=== PATIENT | female | born 1940 | race Caucasian/White ===

== ENCOUNTER → 2017-05-28 | Outpatient (CLI) | payer BC ==
[~2017-05-28] MED LIST: ANT25 PO; ASPI81TA28 PO; DIVA250T4 PO; DPKEC250 PO; HYDR-4079 PO; LACTPOW; MIRT15TA PO; MULT-506 PO; NAPR-1169 PO; ONDA4TAB10 SL; PROM1SYP PO; PROP1SOL IO; RMR15 PO; SERT-234 PO; SODI2SOL OP; SODI5OIN4 IO; VERA120T15 PO; VERA180T PO; [UNRECOGNIZED DRUG - CODE]
--- NOTE | 2017-05-28 07:34 | DIAGNOSTIC IMAGING REPORT ---
KUB CLINICAL HISTORY: N20.0 [id number] COMPARISON STUDY: 02/01/2015 FINDINGS: There is no pathologic bowel dilatation. There is mild fecal retention. The renal shadows are partially obscured overlying bowel gas and fecal material. Several calcifications project over the left renal shadow. It is difficult to determine whether these relate to costochondral junction calcifications, vascular calcifications or calculi. IMPRESSION: Nonspecific left upper quadrant calcifications. CT scanning would be necessary to differentiate renal from costochondral junction or vascular calcifications. Electronically signed by: Kyle Pederson M.D. 05/28/2017 7:33 AM Dictated Date/Time: 05/28/2017 7:31 AM
== END | disposition home or self-care (01) ==
LOC: C.RAD 07:15
PROVIDERS: ATTEND Urology
DX: N20.0 Calculus of kidney (principal)

== ENCOUNTER 2017-08-02 11:06 | Emergency (ER) | payer BC ==
[~2017-08-02] VITALS: Ht 165.1 cm; Wt 69.3 kg
[~2017-08-02 11:06] MED LIST changes: -ANT25 PO; -DIVA250T4 PO; -MIRT15TA PO; -ONDA4TAB10 SL; -SODI2SOL OP; -VERA180T PO
[2017-08-02 11:20] VITALS: TEMP 36.5; Ht 165.1 cm; Wt 69.3 kg
[2017-08-02 12:00] LABS: BASO % 0.2 %; BASO ABS # 0.01 K/uL (0-0.2); COMPLETE YES; EOS % 2.4 %; IG% 0.5 %; LYMPH % 11.8 %; LYMPH ABS # 0.65 K/uL (1.2-3.4); MEAN CELL VOLUME 85.7 fL (80-100); MEAN CORPUSCULAR HEMOGLOBIN 28.6 pg (25-34); MEAN CORPUSCULAR HGB CONC 33.3 g/dl (32-36); MEAN PLATELET VOLUME 10.4 fL (7.4-10.4); MONO % 6.5 %; NEUT % 78.6 %; PLATELET COUNT 219 K/uL (130-400); RED BLOOD COUNT 4.55 M/uL (4.2-5.4); WHITE BLOOD COUNT 5.51 K/uL (4.8-10.8)
[2017-08-02 12:04] LABS: URINE APPEARANCE CLEAR (CLEAR); URINE BILIRUBIN NEG (NEG); URINE COLOR YELLOW; URINE NITRITE NEG (NEG); URINE PH 8.5 (4.5-7.5); URINE SPECIFIC GRAVITY 1.013 (1.000-1.030); UROBILINOGEN NEG (NEG); ZZUR CULT IF INDIC CLEAN CATCH NO
[2017-08-02 12:08] LABS: MANUAL MICROSCOPIC REQUIRED? NO; REVIEW REQ? NO
[2017-08-02 12:21] LABS: BUN/CREATININE RATIO 21.6 (10-20); CALCIUM 8.5 mg/dl (8.5-10.1); CREATININE 0.67 mg/dl (0.60-1.20); POTASSIUM 4.1 mmol/L (3.5-5.1)
[2017-08-02 12:23] LABS: ALB/GLOB RATIO 1.5 (0.9-2)
[2017-08-02] MEDS ORDERED: ONDANSETRON INJ 2 MG/ML 2 ML VIAL IV STA (12:23)
[2017-08-02] MEDS ORDERED: VERA180T PO (12:23)
[2017-08-02] MEDS ORDERED: SODIUM CHLORIDE 0.9% 1000ML 1,000 ML IV STA (12:23)
[2017-08-02] MEDS ORDERED: DIVA250T4 PO (12:23)
[2017-08-02] MEDS ORDERED: MIRT15TA PO (12:23)
[2017-08-02] MEDS ORDERED: KETOROLAC TROMETHAMINE 30 MG/ML VIAL IV STA (12:23)
[2017-08-02] MEDS ORDERED: SODI2SOL OP (12:24)
[2017-08-02] MEDS ORDERED: MECLIZINE HCL 12.5 MG TAB PO STA (12:30)
[2017-08-02] MEDS ORDERED: MECLIZINE HCL 25 MG TAB PO ONE (12:33)
--- NOTE | 2017-08-02 12:34 | EMERGENCY ROOM VISIT NOTE ---
History Report prepared by Elier: Anne Chaney Under the Supervision of: Dr. Deacon Mohr M.D. First contact with patient: 12:16 Chief Complaint: NAUSEA Stated Complaint: ILLNESS Nursing Triage Summary: Pt reports sudden onset of nausea, vomiting, and weakness around 0800 this morning. Discomfort in stomach. Pt had tooth pulled on Sunday and was started on Penicillin which she reports she has not taken previously. History of Present Illness The patient is a 76 year old female who presents to the Emergency Room with complaints of intermittent weakness over the past several days. She currently rates her discomfort as a 1/10 in severity. The patient states that on Sunday she had a tooth pulled. She states that she was so dizzy she needed assistance ambulating. The patient states that over the past two days she has been feeling nauseous intermittently. She states that she has been following a soft diet. The patient states that she had dry heaves multiple times today. She states that today as she was preparing to go to an art class, she developed a total body weakness. The patient states that the feeling went away and she had orange juice and oatmeal for breakfast. She states that she developed the weakness again. The patient states that she decided to go to the walk-in clinic for further evaluation and was instructed to come to the emergency department for further treatment. She states that she has been taking Penicillin for her tooth extraction. The patient reports a history of migraines. The patient reports dizziness, but denies any fall or injury. Source of History: patient Onset: past several days Position: other (global) Symptom Intensity: 1/10 Quality: other (weakness) Timing: intermittent Associated Symptoms: + nausea Note: Associated Symptoms: dizziness, dry heaves Review of Systems See HPI for pertinent positives & negatives. A total of 10 systems reviewed and were otherwise negative. Past Medical & Surgical Medical Problems: (1) Bladder cancer (2) Kidney stone (3) Kidney stone (4) Migraine Family History Cancer Social History Smoking Status: Never Smoker Drug Use: none Marital Status: Housing Status: lives with family Occupation Status: retired Current/Historical Medications Scheduled Aspirin (Aspirin Ec), 81 MG PO DAILY Divalproex Sodium (Depakote Delay Rel), 250 MG PO BID Mirtazapine (Remeron), 15 MG PO HS Multivitamin (Multivitamin), 1 TAB PO DAILY Naproxen (Naprosyn), 500 MG PO BID Ondasetron Odt (Zofran Odt), 4 MG SL Q6H Sertraline (Zoloft), 100 MG PO BID Sodium Chloride Hypertonic (Kana 128), 1 DROP OP DAILY Verapamil Hcl (Calan Sr Ext Rel), 180 MG PO HS Scheduled PRN Hydrocodone/Acetaminophen 10MG/325MG ([place] 10MG/325MG), 1 TAB PO BID PRN for Pain Meclizine HCl (Meclizine HCl), 12.5 MG PO Q8 PRN for Dizziness or Vertigo Propylene Glycol (Ophth) (Systane Balance Restorati), 1 APPLN IO DAILY PRN Allergies Coded Allergies: Acetaminophen (Verified Allergy, Unknown, NAUSEA AND ITCHING, 08/02/17) Oxycodone (Verified Allergy, Unknown, NAUSEA AND ITCHING, 08/02/17) Sumatriptan (Verified Adverse Reaction, Severe, SOB,CHEST PAIN, 08/02/17) Monosodium Glutamate (Verified Adverse Reaction, Intermediate, MIGRAINE, 08/02/17) Physical Exam Vital Signs Date Time Temp Pulse Resp B/P (MAP) Pulse Ox O2 Delivery O2 Flow Rate FiO2 08/02/17 14:29 81 18 178/88 97 Room Air 08/02/17 13:26 85 18 177/80 97 Room Air 08/02/17 12:05 73 08/02/17 11:20 36.5 64 18 175/76 96 Room Air Physical Exam GENERAL: Patient is in no acute distress. HEENT: No acute trauma, normocephalic atraumatic, mucous membranes dry, no nasal congestion, no scleral icterus. Left upper 2nd bicuspid has been removed, no signs of swelling or infection. NECK: No stridor, no adenopathy, no meningismus, trachea is midline. LUNGS: Clear to auscultation bilaterally, no wheeze, no rhonchi, breath sounds equal. HEART: Without murmurs gallops or rubs, regular rate and rhythm. ABDOMEN: Soft, nontender, bowel sounds positive, no hernias, no peritonitis. EXTREMITIES: No cyanosis or edema, full range of motion of all the joints without pain or difficulty, no signs for acute trauma. NEUROLOGIC: Oriented x 3, no acute motor or sensory deficits, no focal weakness. No cerebellar deficits or pronator drift. SKIN: No rash, no jaundice, no diaphoresis. Medical Decision & Procedures ER Provider Diagnostic Interpretation: CT results as stated below per my review and radiologist interpretation: HEAD WITHOUT CONTRAST (CT) CLINICAL HISTORY: 76 years-old Female presenting with dizzy, headache. TECHNIQUE: Multidetector CT imaging of the head was performed without the use of intravenous contrast. IV contrast: None. A dose lowering technique was used consistent with the principles of ALARA (as low as reasonably achievable). COMPARISON: Brain MR from 2011. CT DOSE (mGy.cm): The estimated cumulative dose is 638.56 mGycm. 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 Ventricles and sulci normal in size. Brain parenchyma normal in appearance with preserved wilson-white differentiation. No mass effect or midline shift. No hemorrhage or acute territorial infarct. No extra-axial fluid collection. Paranasal sinuses and mastoid air cells clear. Calvarium intact. IMPRESSION: 1. No acute intracranial pathology. Electronically signed by: Willis Garcia M.D. 08/02/2017 1:01 PM Dictated Date/Time: 08/02/2017 12:59 PM Laboratory Results 08/02/17 11:44 Red Blood Count 4.55, Mean Corpuscular Volume 85.7, Mean Corpuscular Hemoglobin 28.6, Mean Corpuscular Hemoglobin Concent 33.3, Mean Platelet Volume 10.4, Neutrophils (%) (Auto) 78.6, Lymphocytes (%) (Auto) 11.8, Monocytes (%) (Auto) 6.5, Eosinophils (%) (Auto) 2.4, Basophils (%) (Auto) 0.2, Neutrophils # (Auto) 4.33, Lymphocytes # (Auto) 0.65, Monocytes # (Auto) 0.36, Eosinophils # (Auto) 0.13, Basophils # (Auto) 0.01 08/02/17 11:44 Test 08/02/17 11:20 08/02/17 11:44 Urine Color YELLOW Urine Appearance CLEAR (CLEAR) Urine pH 8.5 (4.5-7.5) Urine Specific [place] 1.013 (1.000-1.030) Urine Protein NEG (NEG) Urine Glucose (UA) NEG (NEG) Urine Ketones NEG (NEG) Urine Occult Blood NEG (NEG) Urine Nitrite NEG (NEG) Urine Bilirubin NEG (NEG) Urine Urobilinogen NEG (NEG) Urine Leukocyte Esterase NEG (NEG) White Blood Count 5.51 K/uL (4.8-10.8) Red Blood Count 4.55 M/uL (4.2-5.4) Hemoglobin 13.0 g/dL (12.0-16.0) Hematocrit 39.0 % (37-47) Mean Corpuscular Volume 85.7 fL (80-100) Mean Corpuscular Hemoglobin 28.6 pg (25-34) Mean Corpuscular Hemoglobin Concent 33.3 g/dl (32-36) Platelet Count 219 K/uL (130-400) Mean Platelet Volume 10.4 fL (7.4-10.4) Neutrophils (%) (Auto) 78.6 % Lymphocytes (%) (Auto) 11.8 % Monocytes (%) (Auto) 6.5 % Eosinophils (%) (Auto) 2.4 % Basophils (%) (Auto) 0.2 % Neutrophils # (Auto) 4.33 K/uL (1.4-6.5) Lymphocytes # (Auto) 0.65 K/uL (1.2-3.4) Monocytes # (Auto) 0.36 K/uL (0.11-0.59) Eosinophils # (Auto) 0.13 K/uL (0-0.5) Basophils # (Auto) 0.01 K/uL (0-0.2) RDW Standard Deviation 42.6 fL (36.4-46.3) RDW Coefficient of Variation 13.7 % (11.5-14.5) Immature Granulocyte % (Auto) 0.5 % Immature Granulocyte # (Auto) 0.03 K/uL (0.00-0.02) Anion Gap 7.0 mmol/L (3-11) Est Creatinine Clear Calc Drug Dose 68.7 ml/min Estimated GFR () 98.3 Estimated GFR (Non- 84.8 BUN/Creatinine Ratio 21.6 (10-20) Calcium Level 8.5 mg/dl (8.5-10.1) Total Bilirubin 0.3 mg/dl (0.2-1) Aspartate Amino Transf (AST/SGOT) 16 U/L (15-37) Alanine Aminotransferase (ALT/SGPT) 23 U/L (12-78) Alkaline Phosphatase 56 U/L (45-117) Total Protein 6.7 gm/dl (6.4-8.2) Albumin 4.0 gm/dl (3.4-5.0) Globulin 2.7 gm/dl (2.5-4.0) Albumin/Globulin Ratio 1.5 (0.9-2) Lipase 236 U/L (73-393) Valproic Acid (Depakene) Level 62 mcg/ml (50-100) Laboratory results reviewed by me. Medications Administered Medications (Trade) Dose Ordered Sig/Aldair Route Start Time Stop Time Status Last Admin Dose Admin Ondansetron HCl (Zofran Inj) 4 mg NOW STAT IV 08/02/17 12:23 08/02/17 12:27 DC 08/02/17 12:37 4 MG Sodium Chloride 1,000 ml @ 999 mls/hr Q1H1M STAT IV 08/02/17 12:23 08/02/17 13:23 DC 08/02/17 12:37 999 MLS/HR Ketorolac Tromethamine (Toradol Inj) 30 mg NOW STAT IV 08/02/17 12:23 08/02/17 12:27 DC 08/02/17 12:37 30 MG Meclizine HCl (Antivert Tab) 12.5 mg NOW STAT PO 08/02/17 12:30 08/02/17 12:31 DC 08/02/17 12:38 12.5 MG ED Course 1217: The patient was evaluated in room C8. A complete history and physical exam was performed. 1223: Ordered Toradol Inj 30 mg IV, Sodium Chloride 1000 ml @ 999 mls/hr IV, Zofran Inj 4 mg IV. 1230: Ordered Antivert 12.5 mg PO. 1410: I reevaluated the patient and she is feeling better. I discussed the exam findings with her and I discussed the treatment plan. She verbalized complete understanding and agreement. She is ready to go home. Medical Decision The patient is a 76 year old female who presents to the ED with complaints of intermittent dizziness. Differential diagnoses considered include vertigo, dehydration, migraine, stroke, electrolyte imbalance, anemia, UTI, medication reaction. There is no leukocytosis or concerning anemia. No significant electrolyte abnormality, kidney failure or hepatitis. Valproic acid level is not toxic. Brain CT shows no acute bleed or mass effect. Urinalysis does not show infection. No evidence for pancreatitis. On exam, there were no focal neurologic deficits. The patient's symptoms would come and go and seemed worse with certain position change. The patient very likely has vertigo. Certainly, she may not be doing well with her penicillin-this could be worsening her situation. The patient received IV saline, IV Toradol, IV Zofran and oral meclizine. She feels better and is resting. The patient would like to be discharged, I think this is reasonable. I will try Zofran and meclizine for her symptoms. She will hold her penicillin. If things are worsening, she will return. She was encouraged to follow with her dentist and with her family doctor's office. Medication Reconcilliation Current Medication List: was personally reviewed by me Blood Pressure Screening Patient's blood pressure: Elevated blood pressure Blood pressure disposition: Referred to PCP Impression Primary Impression: Vomiting Additional Impression: Vertigo Scribe Attestation The scribe's documentation has been prepared under my direction and personally reviewed by me in its entirety. I confirm that the note above accurately reflects all work, treatment, procedures, and medical decision making performed by me. Departure Information Dispostion Home / Self-Care Prescriptions Ondasetron Odt (ZOFRAN ODT) 4 Mg Tab 4 MG SL Q6H for Nausea, #10 TAB Prov: Deacon Mohr M.D. 08/02/17 Meclizine HCl (Meclizine HCl) 25 Mg Tab 12.5 MG PO Q8 Y for Dizziness or Vertigo, #10 TAB Prov: Deacon Morh M.D. 08/02/17 Referrals RV. Rizvi MD (PCP) Forms HOME CARE DOCUMENTATION FORM, IMPORTANT VISIT INFORMATION Patient Instructions [facility] Additional Instructions rest fluids zofran 1 tab every 6 hours for nausea meclizine 1/2 tab as needed every 8 hours hold penicillin for now return if worsening as we discussed lab testing and imaging was all ok today Problem Qualifiers
--- NOTE | 2017-08-02 13:03 | DIAGNOSTIC IMAGING REPORT ---
HEAD WITHOUT CONTRAST (CT) CLINICAL HISTORY: 76 years-old Female presenting with dizzy, headache. TECHNIQUE: Multidetector CT imaging of the head was performed without the use of intravenous contrast. IV contrast: None. A dose lowering technique was used consistent with the principles of ALARA (as low as reasonably achievable). COMPARISON: Brain MR from 2011. CT DOSE (mGy.cm): The estimated cumulative dose is 638.56 mGycm. 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 Ventricles and sulci normal in size. Brain parenchyma normal in appearance with preserved wilson-white differentiation. No mass effect or midline shift. No hemorrhage or acute territorial infarct. No extra-axial fluid collection. Paranasal sinuses and mastoid air cells clear. Calvarium intact. IMPRESSION: 1. No acute intracranial pathology. Electronically signed by: Willis Garcia M.D. 08/02/2017 1:01 PM Dictated Date/Time: 08/02/2017 12:59 PM
[2017-08-02] MEDS ORDERED: ANT25 PO (14:19)
[2017-08-02] MEDS ORDERED: ONDA4TAB10 SL (14:19)
[2017-08-02 14:29] VITALS: BP 178/88; PULSE 81; O2SAT 97
== END 2017-08-02 14:33 | disposition home or self-care (01) ==
LOC: EDBD 11:06 → C.EDC 11:08
DX: R11.10 Vomiting, unspecified (principal); R42 Dizziness and giddiness; Z79.82 Long term (current) use of aspirin

== ENCOUNTER → 2017-08-20 | Outpatient (CLI) | payer BC ==
[~2017-08-20] MED LIST changes: +ANT25 PO; +DIVA250T4 PO; -DPKEC250 PO; -LACTPOW; +MIRT15TA PO; +ONDA4TAB10 SL; -PROM1SYP PO; -RMR15 PO; +SODI2SOL OP; -SODI5OIN4 IO; -VERA120T15 PO; +VERA180T PO; -[UNRECOGNIZED DRUG - CODE]
== END | disposition home or self-care (01) ==
LOC: C.PAPS 11:29
PROVIDERS: ATTEND Obstetrics & Gynecology
DX: Z01.419 Encounter for gynecological examination (general) (routine) without abnormal findings (principal)

== ENCOUNTER → 2017-09-06 | Outpatient (CLI) | payer BC | END | disposition home or self-care (01) | LOC: C.PATH 08:42 | PROVIDERS: ATTEND Obstetrics & Gynecology | DX: N63.10 Unspecified lump in the right breast, unspecified quadrant (principal) ==

== ENCOUNTER → 2017-09-28 | Outpatient (CLI) | payer BC ==
--- NOTE | 2017-09-28 11:31 | DIAGNOSTIC IMAGING REPORT ---
(RENAL)RETROPERITON COMP HISTORY: Nephrocalcinosis. Pain. N20.0 Nephrolithiasisno latex allergy COMPARISON: None. FINDINGS: Right kidney: Maximum dimension 11.6 cm. No evidence for hydronephrosis. Normal corticomedullary differentiation and cortical thickness. Left kidney: Maximum dimension 11.1 cm. No evidence for hydronephrosis. Minimal caliectasis superior pole left kidney. Normal corticomedullary differentiation and cortical thickness. Bladder: No bladder wall thickening. The bilateral ureteral jets were identified. IMPRESSION: Normal renal ultrasound. The above report was generated using voice recognition software. It may contain grammatical, syntax or spelling errors. Electronically signed by: Eugenio Merida M.D. 09/28/2017 11:30 AM Dictated Date/Time: 09/28/2017 11:29 AM
== END | disposition home or self-care (01) ==
LOC: C.ULTR 10:42
PROVIDERS: ATTEND Urology
DX: N20.0 Calculus of kidney (principal)

== ENCOUNTER → 2018-02-26 | Outpatient (CLI) | payer BC ==
[~2018-02-26] MED LIST changes: -ONDA4TAB10 SL
--- NOTE | 2018-02-27 15:47 | MAMMOGRAPHY REPORT ---
BILATERAL DIGITAL DIAGNOSTIC MAMMOGRAM TOMOSYNTHESIS AND TARGETED RIGHT ULTRASOUND: 02/26/2018 CLINICAL HISTORY: 77-year-old woman with a personal history of left breast cancer status post breast conservation treatment presents to follow-up the probably benign calcification near the surgical site in the left breast and reassess right breast. TECHNIQUE: Bilateral CC and MLO 2D and tomosynthesis images, spot magnification left CC and ML views were obtained. The current study was also evaluated with the use of computer aided detection (CAD). COMPARISON: Comparison is made to exams dated: 02/26/2018 ultrasound, 08/28/2017 ultrasound, 7 mammogram, 10/19/2016 mammogram, and 10/15/2014 mammogram - [facility]. BREAST COMPOSITION: There are scattered areas of fibroglandular density in both breasts. FINDINGS: There is expected architectural distortion and skin irregularity in the upper outer middle to posterior left breast, at the site of prior lumpectomy. The spot magnification views performed ne ar the surgical site redemonstrate 2 benign rim calcifications and a single round benign-appearing mi crocalcifications at the surgical site, and a few benign rim calcifications also anterior to the surg ical site. There is currently no suspicious grouping or cluster of microcalcifications near the surg ical site or elsewhere throughout the remainder of the visualized right and left breasts. No develop ing mass, asymmetry or unexpected architectural distortion. There is nodularity in the superior midd le one third of the right breast on the MLO tomosynthesis images (slice 30/69), for which further ayana luation with ultrasound was performed in the superior right breast. Targeted ultrasound was performed in the superior right breast and the lower inner quadrant. Sonogra phically normal tissue is seen without a discrete solid or cystic mass. The nodular asymmetry seen o n the right MLO tomosynthesis images most likely represented normal overlapping tissue. IMPRESSION: ACR-BI-RADS CATEGORY 3: PROBABLY BENIGN, TARGETED ULTRASOUND ACR-BI-RADS CATEGORY 3: PRO BABLY BENIGN 1. Stable mammographic appearance of the left breast including benign-appearing calcifications near the surgical site. 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 2. Stable mammographic appearance of the right breast, without mammographic evidence of malignancy. Bilateral mammography should be performed around time of next annual exam, due in September 2018. These results and recommendations were discussed with the patient at the time of the exam. Approximately 10% of breast cancers are not detected with mammography. A negative mammographic report should not delay biopsy if a clinically suggestive mass is present. Kemi Aragon M.D. ay/:02/26/2018 15:15:58 Geometry Professor: Letitia ROBLEDO(Bryan)(Danica), [facility] letter sent: Follow Up Recommended 3 BI-RADS Code: ACR-BI-RADS Category 3: Probably Benign Ultrasound BI-RADS: ACR-BI-RADS Category 3: Pr obably Benign
== END | disposition home or self-care (01) ==
LOC: C.MAMM 08:00
PROVIDERS: ATTEND Obstetrics & Gynecology
DX: R92.1 Mammographic calcification found on diagnostic imaging of breast (principal)